=== PATIENT | male | born 1970 | race Caucasian/White ===

== ENCOUNTER 2024-07-25 12:02 | Emergency (ER) | payer OTHER ==
[~2024-07-25] VITALS: Ht 180.3 cm; Wt 97.7 kg
[2024-07-25] MEDS ORDERED: Ketorolac 30 MG/ML VIAL IM ONE (12:45)
[2024-07-25] MEDS ORDERED: Cyclobenzaprine 10 MG TAB PO ONE (12:45)
[2024-07-25 12:53] LABS: EOS # 0.02 K/mm3 (0.04-0.40); EOS % 0.3 % (0.0-4.0); HEMATOCRIT 45.6 % (42.0-52.0); HEMOGLOBIN 15.2 g/dL (13.5-18.0); LYMPH# 1.35 K/mm3 (1.50-4.00); MEAN CELL VOLUME 97 fl (78-100); MEAN CORPUSCULAR HEMOGLOBIN 32 pg (27-31); MEAN CORPUSCULAR HGB CONC 33 g/dL (33-37); MEAN PLATELET VOLUME 8.7 fl (7.4-10.4); MONO # 0.93 K/mm3 (0.20-0.80); PLATELET COUNT 167 K/mm3 (130-400); RED BLOOD COUNT 4.69 M/mm3 (4.20-5.60); RED CELL DISTRIBUTION WIDTH 12.6 % (11.5-14.5); WHITE BLOOD COUNT 5.9 K/mm3 (4.8-10.8)
[2024-07-25 12:56] LABS: CALCIUM 8.8 mg/dL (8.3-10.5)
[2024-07-25 12:57] LABS: TOTAL PROTEIN 6.8 g/dL (6.4-8.3)
[2024-07-25 12:59] LABS: TOTAL BILIRUBIN 0.8 mg/dL (0.2-1.2)
[2024-07-25] MEDS ORDERED: Albuterol 0.083% Nebule (2.5 MG/3 ML) IH ONE (13:15)
[2024-07-25 13:18] LABS: D-DIMER 0.33 mg/L FEU (0.15-0.50)
[2024-07-25] MEDS ORDERED: CYCLOBENZAPRINE10 M1 PO (13:53)
[2024-07-25] MEDS ORDERED: XOFLUZA80 MG PO (13:53)
[2024-07-25] MEDS ORDERED: PREDNISONE20 M1 PO (13:58)
[2024-07-25] MEDS ORDERED: RT ALBUTEROL CC18 GM IH (13:58)
[2024-07-25] MEDS ORDERED: methylPREDNISolone Sod Succ 125 MG/2 ML VIAL IM ONE (14:00)
[2024-07-25] MEDS ORDERED: Albuterol/Ipratropium 3 MG-0.5 MG/3 ML Neb Soln IH ONE (14:00)
[2024-07-25 14:23] VITALS: BP 105/92
== END 2024-07-25 14:34 | disposition home or self-care (01) ==
LOC: ED 12:02
PROVIDERS: Physician Assistant
DX: S39.012A Strain of muscle, fascia and tendon of lower back, initial encounter (principal); J40 Bronchitis, not specified as acute or chronic; J10.1 Influenza due to other identified influenza virus with other respiratory manifestations; X58.XXXA Exposure to other specified factors, initial encounter
CPT/HCPCS: J1885; J2919